=== PATIENT | male | born 1965 | race African-American/Black ===

== ENCOUNTER 2016-04-19 16:36 | Emergency (ER) | payer OTHER ==
[~2016-04-19] VITALS: Ht 175.3 cm; Wt 95.3 kg
[~2016-04-19 16:36] MED LIST: HYDR-2666 PO; OMEP20TA63 PO; OXYC-323 PO; TRAM50TA PO
[2016-04-19] MEDS ORDERED: FENTANYL PF 100 MCG/2 ML VIAL. IV ONE (18:00)
[2016-04-19] MEDS ORDERED: ONDANSETRON PF 4 MG/2 ML VIAL. IV ONE (18:00)
[2016-04-19 18:03] LABS: BASO % 0 % (0-3); EOS % 0 % (0-3); HEMOGLOBIN 13.9 g/dL (13.0-17.5); LYMPH % 23 % (24-48); MEAN CORPUSCULAR HEMOGLOBIN 29 pg (25-35); MEAN CORPUSCULAR HGB CONC 32 g/dL (31-37); MEAN CORPUSCULAR VOLUME 90 fL (79-100); MONO % 10 % (0-9); NEUT % 67 % (31-73); PLATELET COUNT 207 x10^3/uL (140-400); RED BLOOD COUNT 4.78 x10^6/uL (4.30-5.70); RED CELL DISTRIBUTION WIDTH 13.9 % (11.5-14.5); WHITE BLOOD COUNT 8.9 x10^3/uL (4.0-11.0)
[2016-04-19 18:12] LABS: CREATININE 0.8 mg/dL (0.7-1.3); GFR 123.8; POTASSIUM 3.3 mmol/L (3.5-5.1)
[2016-04-19] MEDS ORDERED: CONTRAST GIVEN MC PRN (18:15)
[2016-04-19] MEDS ORDERED: IOHEXOL 300 MG/ML 75 ML VIAL IV ONE (18:15)
[2016-04-19 18:17] LABS: BILIRUBIN,URINE NEGATIVE (NEG); GLUCOSE,URINE NEGATIVE (NEG); NITRITE,URINE NEGATIVE (NEG); PROTEIN,URINE 100 mg/dL (NEG-TRACE); UROBILINOGEN,URINE 0.2 mg/dL (0.2 mg/dL)
[2016-04-19 18:18] LABS: ALBUMIN 4.2 g/dL (3.4-5.0); ALBUMIN/GLOBULIN RATIO 0.8 (1.0-1.7); TOTAL BILIRUBIN 0.7 mg/dL (0.2-1.0); TOTAL PROTEIN 9.5 g/dL (6.4-8.2)
[2016-04-19 18:22] LABS: BARBITURATES NEG (NEG); BENZODIAZEPINES POS (NEG); CANNABINOIDS POS (NEG); COCAINE NEG (NEG); ETHANOL, URINE NEG (NEG); METHADONE NEG (NEG); OPIATES POS (NEG); PHENCYCLIDINE NEG (NEG)
[2016-04-19 18:28] LABS: BACTERIA,URINE 0 /HPF (0-FEW); RBC,URINE >40 /HPF (0-2); WBC,URINE 0 /HPF (0-4)
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
[2016-04-19 19:14] VITALS: BP 152/85
--- NOTE | 2016-04-19 19:18 | RAD ---
PROCEDURE CT scan of the abdomen and pelvis with contrast 04/19/2016 HISTORY Generalized abdominal pain. TECHNIQUE After the intravenous administration of 75 cc of Omnipaque 300 only, contiguous, 5 millimeter axial sections were obtained through the abdomen and pelvis. One or more of the following individualized dose reduction techniques were utilized for this study: 1. Automated exposure control. 2. Adjustment of the mA and/or kV according to patient size. 3. Use of iterative reconstruction technique. FINDINGS Comparison study is dated 01/08/2014. Images through the lung bases demonstrate minimal dependent subsegmental atelectasis bilaterally. The liver, spleen, pancreas, and adrenal glands are within normal limits. An area of scarring is seen involving the lower pole of the left kidney, unchanged. Multiple rounded low-attenuation structures are seen scattered throughout both kidneys. These measure 3 millimeters to 2.7 centimeters in size. They likely represent cysts. The abdominal aorta tapers normally. The gallbladder is well distended. No free fluid or free air is seen within the abdomen. There is no evidence of bowel obstruction. A small umbilical hernia is seen which contains nondilated small bowel loop. This measures 1.9 centimeters in greatest diameter. Fat containing ventral hernias are seen superior to this which measure 1 to 3.9 centimeters in size. The appendix is well-visualized and is within normal limits. Images through the pelvis demonstrate the urinary bladder distended with urine. Calcifications are seen within the pelvis consistent with phleboliths. Multiple diverticula are seen involving the sigmoid colon. No inflammatory changes are seen in the adjacent fat. No free fluid is seen. Minimal S-shaped curvature of the thoracolumbar spine is noted. Degenerative changes are seen involving the lower thoracic and throughout the lumbar spine and both hips. IMPRESSION No acute abnormality is seen. Electronically signed by: Bran Massey MD (Apr 19, 2016 19:16:42)
--- NOTE | 2016-04-20 10:27 | EKG ---
[facility] [address] [place] [address] Test Date: 2016-04-19 Test Time: 18:08:38 Pat Name: ELE DANIELSON Department: Room: Gender: M [employer] Vice President: : 1965 Requested By: SAW DEAN Order Number: [id number] Reading MD: Jonah Benton Measurements Intervals [place] Rate: 70 P: 27 WV: 140 QRS: -2 QRSD: 86 T: 43 QT: 420 QTc: 457 Interpretive Statements SINUS RHYTHM LEFTWARD AXIS OTHERWISE NORMAL ECG RI6.01 Unconfirmed report Electronically Signed On 04-22-2016 14:00:30 COMPUTER TEACHER by Jonah Benton
== END 2016-04-19 19:35 | disposition home or self-care (01) ==
LOC: ER 16:36
DX: R31.9 Hematuria, unspecified (principal); R10.30 Lower abdominal pain, unspecified; K21.9 Gastro-esophageal reflux disease without esophagitis; F17.210 Nicotine dependence, cigarettes, uncomplicated; F12.10 Cannabis abuse, uncomplicated; Z88.6 Allergy status to analgesic agent
CPT/HCPCS: 36415; 74177; 80053; 81001; 83690; 85027; 93005; 96374; 96375; 99285; G0481; J2405; J3010; Q9967

== ENCOUNTER 2016-04-22 09:52 | Emergency (ER) | payer OTHER ==
[~2016-04-22] VITALS: Ht 172.7 cm; Wt 93.4 kg
[2016-04-22 11:00] LABS: BILIRUBIN,URINE NEGATIVE (NEG); GLUCOSE,URINE NEGATIVE (NEG); NITRITE,URINE NEGATIVE (NEG); PH,URINE 6.5; PROTEIN,URINE 30 mg/dL (NEG-TRACE)
[2016-04-22] MEDS ORDERED: FENTANYL PF 100 MCG/2 ML VIAL. IV ONE (11:00)
[2016-04-22] MEDS ORDERED: PHENAZOPYRIDINE 200 MG TABLET. PO ONE (11:00)
[2016-04-22 11:08] LABS: BASO # 0.1 x10^3/uL (0.0-0.2); BASO % 1 % (0-3); EOS % 6 % (0-3); HEMATOCRIT 39.6 % (39.0-53.0); HEMOGLOBIN 12.8 g/dL (13.0-17.5); LYMPH % 37 % (24-48); MEAN CORPUSCULAR HEMOGLOBIN 29 pg (25-35); MEAN CORPUSCULAR HGB CONC 32 g/dL (31-37); MEAN CORPUSCULAR VOLUME 91 fL (79-100); MONO % 12 % (0-9); NEUT % 44 % (31-73); PLATELET COUNT 181 x10^3/uL (140-400); RED BLOOD COUNT 4.38 x10^6/uL (4.30-5.70); RED CELL DISTRIBUTION WIDTH 13.6 % (11.5-14.5); WHITE BLOOD COUNT 5.3 x10^3/uL (4.0-11.0)
[2016-04-22 11:11] LABS: BACTERIA,URINE FEW /HPF (0-FEW); RBC,URINE OCC /HPF (0-2); SQUAMOUS EPITHELIAL CELL,UR FEW /LPF
[2016-04-22 11:19] LABS: CALCIUM 9.2 mg/dL (8.5-10.1); CREATININE 0.7 mg/dL (0.7-1.3); GFR 144.4; POTASSIUM 3.5 mmol/L (3.5-5.1)
[2016-04-22 11:24] VITALS: BP 148/90
[2016-04-22] MEDS ORDERED: TAMS0.4C97 PO (12:16)
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
== END 2016-04-22 12:46 | disposition home or self-care (01) ==
LOC: ER 09:52
DX: R33.9 Retention of urine, unspecified (principal); Z88.6 Allergy status to analgesic agent; K21.9 Gastro-esophageal reflux disease without esophagitis; F12.10 Cannabis abuse, uncomplicated
CPT/HCPCS: 36415; 80048; 81001; 83605; 85027; 87086; 96374; 99284; J3010; 51702

== ENCOUNTER → 2016-05-17 | Outpatient (CLI) | payer OTHER ==
[2016-04-22 11:24] VITALS: BP 148/90
[~2016-05-17] MED LIST changes: +TAMS0.4C97 PO
--- NOTE | 2016-05-17 16:04 | KCIC ---
Ultrasound renal Indication: Benign prostatic hypertrophy. The right kidney measures 13.2 x 6.0 x 6.8 centimeters and the left kidney measures 12.4 x 6.1 x 6.7 centimeters. The cortical thickness and echogenicity is normal. The right kidney does contain a cyst in the lower pole measuring 3.6 centimeters. Left kidney contains 2 cysts, largest upper pole approximately 2.7 centimeters in diameter. Smaller cyst mid region measures 1.8 centimeters. No calculi are detected. No hydronephrosis is seen. Bladder is decompressed. The bladder jets were not visualized. The prostate is enlarged measuring 5.5 x 5.0 x 4.9 centimeters. Impression: Bilateral renal cysts. Prostatic enlargement. Electronically signed by: Ozzy Deshpande MD (May 17, 2016 16:03:42)
== END | disposition home or self-care (01) ==
LOC: KCIC US 12:02
PROVIDERS: ATTEND Nurse Practitioner Occupational Health
DX: N40.0 Benign prostatic hyperplasia without lower urinary tract symptoms (principal); N28.1 Cyst of kidney, acquired
CPT/HCPCS: 76770

== ENCOUNTER 2016-09-23 11:05 | Emergency (ER) | payer OTHER ==
[~2016-09-23] VITALS: Ht 172.7 cm; Wt 93.4 kg
[~2016-09-23 11:05] MED LIST changes: -HYDR-2666 PO; +HYDR-2758 PO
[2016-09-23 11:12] VITALS: BP 151/92
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
[2016-09-23] MEDS ORDERED: IV NORMAL SALINE 1000ML BAG 1,000 ML IV SCH (12:25)
[2016-09-23] MEDS ORDERED: ONDANSETRON PF 4 MG/2 ML VIAL. IV ONE (12:30)
[2016-09-23] MEDS ORDERED: fentaNYL PF VIAL 100 MCG/2 ML VIAL IV PRN (12:30)
[2016-09-23 12:41] LABS: BASO % 1 % (0-3); EOS % 2 % (0-3); HEMATOCRIT 43.3 % (39.0-53.0); HEMOGLOBIN 14.2 g/dL (13.0-17.5); LYMPH % 28 % (24-48); MEAN CORPUSCULAR HEMOGLOBIN 30 pg (25-35); MEAN CORPUSCULAR HGB CONC 33 g/dL (31-37); MEAN CORPUSCULAR VOLUME 91 fL (79-100); MONO % 13 % (0-9); NEUT % 57 % (31-73); PLATELET COUNT 209 x10^3/uL (140-400); RED BLOOD COUNT 4.78 x10^6/uL (4.30-5.70); RED CELL DISTRIBUTION WIDTH 14.1 % (11.5-14.5); WHITE BLOOD COUNT 7.3 x10^3/uL (4.0-11.0)
[2016-09-23 12:50] LABS: INR 1.1 (0.8-1.1); PROTHROMBIN TIME PATIENT 13.6 SEC (11.7-14.0)
[2016-09-23 12:55] LABS: CALCIUM 8.9 mg/dL (8.5-10.1); CREATININE 0.8 mg/dL (0.7-1.3); GFR 123.3
[2016-09-23 13:01] LABS: ALBUMIN 3.7 g/dL (3.4-5.0); ALBUMIN/GLOBULIN RATIO 0.7 (1.0-1.7); TOTAL PROTEIN 8.8 g/dL (6.4-8.2)
[2016-09-23 13:02] LABS: POTASSIUM 4.2 mmol/L (3.5-5.1)
[2016-09-23] MEDS ORDERED: ACETAMINOPHEN 325 MG TABLET. PO ONE (13:45)
[2016-09-23 13:52] LABS: BILIRUBIN,URINE SMALL (NEG); GLUCOSE,URINE NEGATIVE (NEG); NITRITE,URINE NEGATIVE (NEG); PH,URINE 7.5; PROTEIN,URINE 100 mg/dL (NEG-TRACE)
[2016-09-23 14:15] LABS: BACTERIA,URINE 0 /HPF (0-FEW); RBC,URINE 0 /HPF (0-2)
== END 2016-09-23 14:15 | disposition short-term general hospital (02) ==
LOC: ER 11:05
DX: N48.33 Priapism, drug-induced (principal); K21.9 Gastro-esophageal reflux disease without esophagitis; F17.200 Nicotine dependence, unspecified, uncomplicated; Z88.8 Allergy status to other drugs, medicaments and biological substances
CPT/HCPCS: 36415; 80053; 81001; 85027; 85610; 85730; 87086; 96360; 96361; 99285; J7030